=== PATIENT | female | born 1945 | race African-American/Black ===

== ENCOUNTER 2017-09-05 16:38 | Observation (INO) | payer OTHER, MEDICARE ==
[~2017-09-05] VITALS: Ht 172.7 cm; Wt 91.4 kg
--- NOTE | ~2017-09-05 | HP ---
PATIENT: ISABELLA LOPEZ MEDICAL RECORD: [id number] ACCOUNT: [id number] LOCATION:[address] : 43 ADMISSION DATE: 09/05/17 HISTORY AND PHYSICAL EXAMINATION DATE OF ADMISSION: 09/05/2017. CHIEF COMPLAINT: Chest pain. HISTORY OF PRESENT ILLNESS: This is a 71-year-old -[place] female who presented to the ER complaining of intermittent pain in her chest for the last couple of weeks, but in the last day or so, she started having pain that radiated up to the neck and out to the left arm. She did not have associated shortness of breath or diaphoresis. No nausea. She has no history of coronary artery disease. She does have a history of hypertension and a mildly elevated cholesterol in the past. She is assigned to observation for chest pain. PAST MEDICAL AND SURGICAL HISTORY: Hypertension, hyperlipidemia, seasonal allergies. PAST SURGICAL HISTORY: Hysterectomy. DRUG ALLERGIES: None known. HOME MEDICATIONS: Losartan/HCTZ 50/12.5 once a day. HABITS: She never smoked. She might have an occasional glass of wine socially. No drugs. 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 She is . FAMILY HISTORY: Father at 94 of a staph infection. He had no known heart disease. Mother at 77. She had diabetes and breast cancer. REVIEW OF SYSTEMS: GENERAL: No major weight changes. HEENT: No particular sinus or allergy problems. RESPIRATORY: No history of heart disease. RESPIRATORY: She has been told that she might have mild asthma per Dr. Uribe. GASTROINTESTINAL: Occasional dyspepsia. GENITOURINARY: No significant problems there. MUSCULOSKELETAL: No significant problems there. NEUROLOGIC: No migraines or seizures. PSYCHIATRIC: Denies depression or melancholia. PHYSICAL EXAMINATION: VITAL SIGNS: Temperature 98.6, pulse 58, respirations 18, blood pressure 105/52, O2 sat 96% on room air. GENERAL: She is awake and alert, in no acute distress. She is not having chest pain now. SKIN: Warm and dry. HEENT: Grossly within normal limits. NECK: Supple. No JVD or bruit. HEART: Regular rate and rhythm without murmur. HISTORY AND PHYSICAL [id number] ISABELLA LOPEZ LUNGS: Clear. ABDOMEN: Soft, flat, nontender. EXTREMITIES: No edema. LABORATORY DATA: EKG showed normal sinus rhythm, rate 68. Basic metabolic panel is all okay except potassium 3.4. Liver functions were all okay. Troponin less than 0.017. CBC with a white count of 8700, hemoglobin 12.6, hematocrit 36.1. ASSESSMENT: 1. Chest pain. 2. History of hypertension. 3. History of high cholesterol. PLAN: We will admit for serial cardiac enzymes. If they are negative, we will let her go home and pursue further cardiac evaluation as an outpatient. If positive, we will consult cardiology. Other tests and procedures as warranted. TRANSINT:[id number] Voice Confirmation ID: [id number] DOCUMENT ID: [id number] DENNY CAVAZOS MD at 2313 CC: [id number] DICTATION DATE: 09/06/17 1322 FIELD AIDE: 09/06/17 1340 DIS IN 09/06/17 [id number] [place] [address]
[2017-09-05] MEDS ORDERED: COZAAR50 MG PO (16:55)
[2017-09-05 17:23] LABS: BASOPHILS 0.1 % (0-2); EOSINOPHILS 0.9 % (0-7); HEMATOCRIT 36.1 % (36.0-48.0); HEMOGLOBIN 12.6 g/dL (12-16); IMMATURE GRANULOCYTES 0.3 % (0-5); LYMPHOCYTES 23.1 % (15-50); MCH 32.9 pg (26.0-34.0); MCHC 34.9 g/dL (31.0-37.0); MCV 94.3 fL (80.0-100.0); MEAN PLATELET VOLUME 9.1 fL (7.4-10.4); MONOCYTES 6.6 % (2-11); PLATELET COUNT 362 10x3/uL (130-400); RBC 3.83 10x6/uL (4.00-5.40); WBC 8.7 10x3/uL (4.8-10.8)
[2017-09-05 17:43] LABS: ALBUMIN 3.3 g/dL (3.4-5.0); ALKALINE PHOSPHATASE 72 U/L (46-116); ALT (SGPT) 17 U/L (10-68); BILIRUBIN - TOTAL 0.45 mg/dL (0.2-1.3); CALC OSMOLALITY 280 mosm/kg (275-300); CALCIUM 9.3 mg/dL (8.5-10.1); CARBON DIOXIDE 30.4 mmol/L (21.0-32.0); CHLORIDE - SERUM 104 mmol/L (98-107); CREATININE - SERUM 0.8 mg/dL (0.6-1.3); GLUCOSE 157 mg/dL (74-106); POTASSIUM - SERUM 3.4 mmol/L (3.5-5.1); PROTEIN - SERUM 7.8 g/dL (6.4-8.2); SODIUM 140 mmol/L (136-145); UREA NITROGEN 9 mg/dL (7-18); eGFR NON AFRICAN AMERICAN 75 mL/min (90-120)
[2017-09-05 17:54] LABS: CKMB 0.7 U/L (0.0-3.6); CREATINE KINASE 65 UL (21-215)
[2017-09-05 17:56] LABS: TROPONIN-I < 0.017 ng/mL (0.000-0.060)
[2017-09-05 20:57] LABS: CKMB 0.4 U/L (0.0-3.6); CREATINE KINASE 63 UL (21-215)
[2017-09-05 21:05] LABS: TROPONIN-I < 0.017 ng/mL (0.000-0.060)
[2017-09-05 21:43] VITALS: BP 143/73
[2017-09-06 00:32] VITALS: BP 146/70
[2017-09-06 00:38] VITALS: BP 146/70; Ht 172.7 cm; Wt 91.4 kg
[2017-09-06 02:59] LABS: CKMB 0.3 U/L (0.0-3.6); CREATINE KINASE 54 UL (21-215); TROPONIN-I < 0.017 ng/mL (0.000-0.060)
[2017-09-06 05:07] VITALS: BP 112/44
[2017-09-06 08:49] VITALS: BP 151/71
[2017-09-06 10:20] LABS: CKMB 0.6 U/L (0.0-3.6); CREATINE KINASE 59 UL (21-215)
[2017-09-06 11:15] LABS: TROPONIN-I < 0.017 ng/mL (0.000-0.060)
[2017-09-06 11:16] VITALS: BP 105/52
[2017-09-06] MEDS ORDERED: HYZAAR 50-12.51 TAB PO (13:23)
== END 2017-09-06 15:12 | disposition home or self-care (01) ==
LOC: D.ER 16:38 → D.M2 20:04 → D.EDHOLD 20:04 → OBSVTIME 20:04 → D.M2 20:30
PROVIDERS: Emergency Medicine; Family Medicine
DX: R07.9 Chest pain, unspecified (principal); E78.5 Hyperlipidemia, unspecified; I10 Essential (primary) hypertension